=== PATIENT | male | born 1985 ===

== ENCOUNTER 2020-05-02 08:01 | Outpatient (CLI) | payer SELFPAY ==
[2020-05-03 22:26] LABS: SARS-CoV-2 RNA Undetected (Undetected); SARS-CoV-2 Specimen Source Nasopharynx
== END 2020-05-02 08:21 ==
PROVIDERS: Visit Provider Family Medicine
DX: Z11.59 Encounter for screening for other viral diseases (principal)
CPT/HCPCS: U0003